=== PATIENT | female | born 1990 | race Hispanic/Latino ===

== ENCOUNTER 2016-05-20 16:10 | Emergency (ER) | payer BC, OTHER ==
[2016-03-17 17:37] VITALS: BMI 23.8
--- NOTE | 2016-05-20 20:33 | OBHP ---
Datetime: 05/20/2016 17:45 IP Adm Impression: Term, intrauterine IP Admit Plan: Observation/Evaluation Admit Comment, IP Provider: This is a 26 y/o at 38w4d, PARMJIT: 05/30/16 based on LMP and confirm ed with first trimester screening ultrasound at 11w1d who presents complaining of scant bloody mucus discharge since today around 1 pm. Denies regular contractions, gush of blood or leakage of fluids. P atient reports last sexual intercourse was yesterday. Reports good movements. PMHx: No reported OBHx: , no complications during current Allergies: NKDA SHx: No reported SocialHx: Denies smoking, etoh, and recreational drugs. O: as above VE: 1-2 cm/ thick A: 26 y/o with IUP at 38w4d, with bloody mucus discharge in no active phase of labor. Plan: -Observation -Continue external monitor. -Oral hydration Patient was seen with and examined by Dr. Astudillo. Angela Stearns PGY1 OBH Addendum: pt seen and examined by me. agree with above assessment and plan. pt denies ctxs, palpitations, sob, cp, fatigue. pt states she feels anxious because she has left her daughter with the grandmother and she has never been apart from her since her . d/c home labor precautions pt d/w dr. arshad Pelvic Type - PN: Adequate Extremities - PN: Normal Abdomen - PN: Normal Lungs - PN: Normal Heart - PN: Normal Neurologic - PN: Normal HEENT - PN: Normal General - PN: Normal FHR - Baseline A Provider: 140 Membranes, Provider: Intact EGA AdmitDate IP: 38.4 Vital Signs Provider: Reviewed Vital Signs Provider Details: Mother's HR between 101-117 IP Chief Complaint: Vaginal bleeding NICHD Variability Prov Fetus A: Moderate 6-25bpm NICHD Accel Fetus A IP Provider: [id number] FHR Category Provider Fetus A: Category I NICHD Decel Fetus A IP Provider: None Dilatation, Provider: 1-2 cm
== END 2016-05-20 23:00 | disposition home or self-care (01) ==
LOC: H.EROB2 16:10
DX: O47.1 False labor at or after 37 completed weeks of gestation (principal); Z3A.38 38 weeks gestation of pregnancy

== ENCOUNTER 2016-06-02 21:27 | Inpatient (IN) | payer BC, OTHER ==
[2016-06-02] MEDS ORDERED: Lactated Ringer's 1,000 ML IV SCH ×2 (22:15→22:30)
--- NOTE | 2016-06-02 22:52 | HP ---
HISTORY OF PRESENT ILLNESS: This is a 26-year-old G3, P1-0-1-1 at 40 weeks and 3 days with an EDC of 05/30/2016 by LMP, confirmed by 11-week ultrasound who presents for induction of labor for postdates. This patient reports some tightening. She reports slight blood-tinged discharge since her exam yesterday. Denies leaking of fluid and reports positive movement. The patient received her care with [facility] with Dr. Cool. 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 She also has a history of a fetus with Pina syndrome for which she had an induced . PAST MEDICAL HISTORY: Healthy. PAST SURGICAL HISTORY: Dilation and curettage for in 2011, tonsillectomy and adenoidectomy in about 1990. MEDICATIONS: None. ALLERGIES: No known drug allergies. SOCIAL HISTORY: The patient denies tobacco, alcohol, and illicit drug use. FAMILY HISTORY: Mother with thyroid disease, paternal grandfather with pancreatic cancer, and diabetes and she reports that her father has had bypass surgery. GYNECOLOGICAL HISTORY: She has a history of regular periods. She denies any history of any STDs or any abnormal Pap smears. OBSTETRICAL HISTORY: In 2011, she underwent an induced for Pina syndrome. In 03/2014 she underwent a vaginal delivery of a female weighing 6 pounds at [facility] and that baby had right hydronephrosis. LABS: Blood type is AB positive, antibody screen negative. Hemoglobin electrophoresis is within normal limits. Urine culture was negative. Gonorrhea and chlamydia were negative. Syphilis nonreactive. Rubella positive, HIV negative, hepatitis B surface antigen negative. Cystic fibrosis positive. On 11/19/2015 her Panorama was a female fetus low risk. On 12/30/2015, maternal serum AFP was negative. On 03/09/2016, 1-hour Glucola was 87. Syphilis nonreactive. HIV negative. On 05/05/2016, group B strep was negative. PHYSICAL EXAMINATION: Afebrile, vital signs stable GENERAL: pt appears comfortable lying in bed ABDOMEN: Soft, nontender, gravid. EXTREMITIES: Nontender. VAGINAL: 1 cm, 60% effaced and -3 station at 2148. External monitoring: Baseline is in the 130s with moderate variability and positive accelerations. Tocodynamometer: difficult to discern, although likely negative; may be artifact from pt movement. ASSESSMENT AND PLAN: This is a 26-year-old G3, P1-0-1-1 at 40 weeks and 3 days for induction of labor for postdates. Will start p.o. misoprostol for induction. GBS negative. heart tracing is reassuring. Vaibhav Carson MD cc: [id number] TT: 06/02/2016 22:51:38 jn MTDD
[2016-06-02 23:23] LABS: BASO % 0.3 % (0.0-2.0); EOS # 0.2 K/uL (0.0-0.7); EOS % 1.6 % (0.0-4.0); HEMATOCRIT 27.6 % (34.0-47.0); LYMPH # 1.8 K/uL (1.0-4.3); LYMPH % 17.5 % (20.0-40.0); MEAN CELL VOLUME 81.3 fl (81.0-99.0); MEAN CORPUSCULAR HEMOGLOBIN 26.7 pg (27.0-31.0); MEAN CORPUSCULAR HGB CONC 32.8 g/dL (33.0-37.0); MEAN PLATELET VOLUME 9.5 fl (7.2-11.7); MONO # 0.7 K/uL (0.0-0.8); MONO % 6.6 % (0.0-10.0); NEUT # 7.7 K/uL (1.8-7.0); NRBC % 0.1 % (0.0-0.0); RED CELL DISTRIBUTION WIDTH 15.7 % (11.5-14.5); WHITE BLOOD COUNT 10.4 K/uL (4.8-10.8)
[2016-06-03] MEDS ORDERED: Nalbuphine 20 mg/ml Inj (1 ml) IVP PRN ×2 (00:45→04:45)
[2016-06-03] MEDS ORDERED: Lactated Ringer's 1,000 ML IV SCH (06:13)
[2016-06-03] MEDS ORDERED: Bupivacaine HCl 0.25% PF (10 ml) Inj ONE (09:35)
[2016-06-03] MEDS ORDERED: Fentanyl/Bupivacaine HCl 250 ML EPI ONE (10:24)
--- NOTE | 2016-06-03 16:45 | OBDS ---
DELIVERY PERSONNEL Delivery Doctor: Moises Mayfield MD International Operations Manager: Leslie Jaime terrazzo worker: Stephen Cade MD MATERNAL INFORMATION Delivery Anesthesia: Epidural Medications in Delivery: cytotec Estimated Blood Loss (ml): 75 Placenta Cultured: No Maternal Complications: None RN Comments: pt delivered viable girl, infant dried and placed on mother's chest for skin to skin. i nfant then taken to warmer for initail assessment. apgars were 9 and 9. pt remained stable. Provider Comments: of live female over intact perienum 8lbs 3oz, 9/9 in INGRID presentation followed by shoulders and rest of infant atraumatically, mouth and nose suctioned, cord clamped and cut, infant placed in warmer, placenta delivered spontaneously, fundus firm, abrasion repaired with 3 -0 vicryl rapide, EBL=75ml, pt tolerated procedure well. LABOR SUMMARY EDC: 05/30/2016 00:00 No. Babies in Womb: 1 Attempted: No Labor Anesthesia: Epidural LABOR INFORMATION Reason for Induction: Postterm Onset of Labor: 06/03/2016 09:30 Complete Dilatation: 06/03/2016 13:30 Cervical Ripening Agents: Cytotec @ Oxytocin: N/A Group B Beta Strep: Negative Steroids Given: None Reason Steroids Not Administered: Not Applicable MEMBRANES Membranes Rupture Method: Spontaneous Rupture of Membranes: 06/03/2016 12:10 Length of Rupture (hrs): 4.18 Amniotic Fluid Color: Bloody Amniotic Fluid Amount: None Amniotic Fluid Odor: Normal STAGES OF LABOR Stage 1 hrs: 4 Stage 1 min: 0 Stage 2 hrs: 2 Stage 2 min: 51 Stage 3 hrs: 0 Stage 3 min: 8 Total Time in Labor hrs: 6 Total Time in Labor min: 59 VAGINAL DELIVERY Episiotomy: None Laceration Extension: First Degree Laceration Type: Perineal Laceration Repair: Yes Initial Vag Sponge Count: 5 Final Vag Sponge Count: 5 Initial Vag Sharps Count: 1 Final Vag Sharps Count: 1 Sponge Count Correct: Yes Sharps Count Correct: Yes BABY A INFORMATION Infant Delivery Date/Time: 06/03/2016 16:21 Method of Delivery: Vaginal Born in Route : No : N/A Forceps: N/A Vacuum Extraction: N/A Shoulder Dystocia : No SHOULDER DYSTOCIA BABY A Infant Delivery Date/Time: 06/03/2016 16:21 PRESENTATION/POSITION BABY A Presentation: Cephalic PLACENTA INFORMATION BABY A Placenta Delivery Time : 06/03/2016 16:29 Placenta Method of Delivery: Spontaneous Placenta Status: Delivered SCORES BABY A Heart Rate 1 min: >100 bpm Resp Effort 1 min: Good Cry Reflex Irritability 1 min: Cough or Sneeze or Pulls Away Muscle Tone 1 min: Active Motion Color 1 min: Body [place], Extremities Blue Resuscitation Effort 1 min: N/A SCORE 1 MIN: 9 Heart Rate 5 min: >100 bpm Resp Effort 5 min: Good Cry Reflex Irritability 5 min: Cough or Sneeze or Pulls Away Muscle Tone 5 min: Active Motion Color 5 min: Body [place], Extremities Blue Resuscitation Effort 5 min: N/A SCORE 5 MIN: 9 INFANT INFORMATION BABY A Gestational Age at Delivery: 40.4 Gestational Status: Post-term Infant Outcome : Liveborn Condition : Stable Sex: Female CORD INFORMATION BABY A No. Cord Vessels: 3 Nuchal Cord : N/A Cord Blood Taken: Yes Infant Suction: Mouth
[2016-06-03] MEDS ORDERED: Oxycodone/Acetaminophen 5/325 mg Tab PO PRN ×3 (16:51→17:41)
[2016-06-03] MEDS ORDERED: Benzocaine/Menthol SPRAY TOP PRN (16:51)
[2016-06-03 17:51] VITALS: O2SAT 100
[2016-06-03 19:31] VITALS: BP 120/69; PULSE 78; RESP 16; TEMP 98.9
[2016-06-03] MEDS: Benzocaine/Menthol SPRAY TOP PRN (21:23)
[2016-06-04] MEDS: Oxycodone/Acetaminophen 5/325 mg Tab PO PRN ×2 (03:04→21:40)
[2016-06-04 06:18] LABS: HEMATOCRIT 27.3 % (34.0-47.0); MEAN CELL VOLUME 82.5 fl (81.0-99.0); MEAN CORPUSCULAR HEMOGLOBIN 25.6 pg (27.0-31.0); RED CELL DISTRIBUTION WIDTH 15.8 % (11.5-14.5)
[2016-06-04] MEDS ORDERED: Multivitamin With Minerals Tab PO SCH (09:00)
[2016-06-04] MEDS: Multivitamin With Minerals Tab PO SCH (09:19)
[2016-06-04] MEDS: Benzocaine/Menthol SPRAY TOP PRN (09:20)
--- NOTE | 2016-06-04 12:57 | OBPPN ---
Datetime: 06/04/2016 12:49 PP Pain Prov: Within normal limits PP Nausea Prov: Denies PP Flatus Prov: Yes PP Breasts Prov: Normal PP Heart Prov: Normal PP Lungs Prov: Normal PP Abdomen/Uterus Prov: Normal PP Lochia Prov: Normal PP Vulva/Perineum Prov: Normal PP CVA Tenderness Prov: Normal PP Extremities Prov: Normal PP Comments Phys Exam Prov: Fundus firm, under umbilicus PP Impression Prov: Normal progression PP Plan Prov: Continue present management PP Progress Note Prov: Patient denies CP, no SOB, no N/V, tolerating PO diet, ambulating voiding wel l, mild lochia, abdominal pain A/P 1. Reg diet 2. Percocet/Motrin prn pain 3. Encourage and ambulation IP PP Procedures: None Vital Signs Provider PP: Reviewed; Within Normal Limits
[2016-06-05] MEDS: Benzocaine/Menthol SPRAY TOP PRN (08:38)
[2016-06-05] MEDS: Multivitamin With Minerals Tab PO SCH (08:38)
--- NOTE | 2016-06-05 12:36 | OBDCSUM ---
Datetime: 06/05/2016 12:35 Discharged to, Provider: Home Follow up at, Provider: OB Disch Instr Activity: Normal activity Disch Instr Diet: Regular Discharge Instructions, Provider: Routine instructions given Discharge Diagnosis, Provider: Term Delivered Discharge Time: 06/05/2016 12:35 Follow up in weeks, Provider: 6 wks Disch Referrals: None Contraception discussed, Prov: Yes Disch Activity Restrictions: No sexual activity; Nothing in vagina - [place], tampons, douche Discharge Comment, Provider: Return to hospital if increased bleeding, pain, temp
--- NOTE | 2016-06-05 12:36 | OBPPN ---
Datetime: 06/05/2016 12:33 PP Pain Prov: Within normal limits PP Nausea Prov: Denies PP Flatus Prov: Yes PP Breasts Prov: Normal PP Heart Prov: Normal PP Lungs Prov: Normal PP Abdomen/Uterus Prov: Normal PP Lochia Prov: Normal PP Vulva/Perineum Prov: Normal PP CVA Tenderness Prov: Normal PP Extremities Prov: Normal PP Comments Phys Exam Prov: Fundus firm under umbilicus Incision clean/dry/intact PP Impression Prov: Normal progression PP Plan Prov: Continue present management PP Progress Note Prov: Patient denies CP, no SOB, no N/V, tolerating PO diet, ambulating/voiding wel l, mild lochia, abdominal pain tolerable with meds A/P PPD #2 1. Discharge patient home 2. Discharge instructions reviewed IP PP Procedures: None Vital Signs Provider PP: Reviewed; Within Normal Limits
== END 2016-06-05 14:15 | disposition home or self-care (01) | DRG 775 ==
LOC: H.EROB2 21:27 → H.L&D 22:01 → H.OB/GYN 06-03 20:00
PROVIDERS: ADMIT Obstetrics & Gynecology; ATTEND Obstetrics & Gynecology
PROC: 4A1HXCZ Monitoring of Products of Conception, Cardiac Rate, External Approach (ICD-10-PCS; principal; 2016-06-02)
PROC: 10E0XZZ Delivery of Products of Conception, External Approach (ICD-10-PCS; 2016-06-03)
PROC: 0HQ9XZZ Repair Perineum Skin, External Approach (ICD-10-PCS; 2016-06-03)
DX: O48.0 Post-term pregnancy (principal); O70.0 First degree perineal laceration during delivery; Z3A.40 40 weeks gestation of pregnancy; Z37.0 Single live birth